=== PATIENT | female | born 1950 | race Caucasian/White ===

== ENCOUNTER 2021-05-06 10:06 | Emergency (ER) | payer OTHER, MEDICAID ==
[~2021-05-06] VITALS: Ht 160 cm; Wt 72.6 kg
[2021-05-06] MEDS ORDERED: DILTIAZEM ER180 M2 PO (10:11)
[2021-05-06] MEDS ORDERED: LISINOPRIL10 MG PO (10:12)
[2021-05-06] MEDS ORDERED: JANUMET 50-1,01 EACH PO (10:12)
[2021-05-06] MEDS ORDERED: PROTONIX40 M2 PO (10:12)
[2021-05-06 11:18] LABS: ABSOLUTE BASOPHILS 0.1 thou/uL (0.0-0.2); ABSOLUTE EOSINOPHILS 0.1 thou/uL (0.0-0.7); ABSOLUTE LYMPHOCYTES 1.8 thou/uL (0.8-5.3); ABSOLUTE MONOCYTES 0.5 thou/uL (0.0-1.2); ABSOLUTE NEUTROPHILS 8.3 thou/uL (1.6-8.1); BASOPHILS 0.8 %; EOSINOPHILS 0.9 %; HEMATOCRIT 31.7 % (37.0-47.0); HEMOGLOBIN 10.2 gm/dL (12.0-15.0); LYMPHOCYTES 16.8 %; MCH 23.4 pg (26.0-34.0); MCHC 32.2 g/dL (28.0-37.0); MCV 72.7 fL (80.0-100.0); MONOCYTES 4.6 %; MPV 7.5 fl. (7.2-11.1); NUCLEATED RBCS 0 /100WBC; PLATELET COUNT* 405 thou/uL (150-400); POLYS 76.9 %; RBC 4.36 mil/uL (4.20-5.00); RDW-CV 17.3 % (10.5-14.5); WBC 10.8 thou/uL (4.0-11.0)
[2021-05-06 11:30] LABS: CALCIUM 9.2 mg/dL (8.5-10.1); CREATININE 0.7 mg/dL (0.6-1.3); POTASSIUM 4.4 mmol/L (3.5-5.1)
[2021-05-06 11:36] LABS: ALBUMIN 4.2 g/dL (3.4-5.0); TOTAL BILIRUBIN 0.3 mg/dL (<0.1-1.0); TOTAL PROTEIN 8.2 g/dL (6.4-8.2)
[2021-05-06 11:38] LABS: URINE BILIRUBIN NEGATIVE (Negative); URINE BLOOD NEGATIVE (Negative); URINE CLARITY CLEAR; URINE COLOR YELLOW; URINE GLUCOSE-RANDOM NEGATIVE (Negative); URINE KETONES NEGATIVE (Negative); URINE LEUKOCYTES-REFLEX NEGATIVE (Negative); URINE NITRITE-REFLEX NEGATIVE (Negative); URINE PROTEIN NEGATIVE (Negative); URINE UROBILINOGEN 0.2 E.U./dl (0.2-1.0)
--- NOTE | 2021-05-06 12:29 | EKG ---
[place] [address] ELECTROCARDIOGRAM REPORT Name: GISELAFRANCISCO J Pedro Room: [facility]#: [id number] Admission: 05/06/21 Attend Phys: Discharge: Date of : 52 Date of Service: 05/06/21 1127 Report #: [id number] THIS REPORT FOR: //name// [facility] ED Test Date: 2021-05-06 Test Time: 11:27:26 Pat Name: FRANCISCO J HIGGINS Department: Room: Gender: Slip Laster: : 1950 Requested By: Minoo Albright Order Number: [id number] MD: Doc Sawant Measurements Intervals [place] Rate: 95 P: 84 [place]: 163 QRS: 6 QRSD: 91 T: 55 QT: 341 QTc: 429 Interpretive Statements Sinus rhythm Probable left atrial enlargement Anterior infarct, old Baseline wander in lead(s) I,III,aVL No previous ECG available for comparison Electronically Signed On 05-06-2021 12:28:48 [employer] by Doc Sawant [email or web address] <ELECTRONICALLY SIGNED> By: Doc Sawant MD, [facility] 05/06/21 1228 1127 1127 Doc Sawant MD, [facility] /EPI
[2021-05-06 12:45] VITALS: BP 181/89
[2021-05-06] MEDS ORDERED: ATIVAN1 M1 PO (13:05)
== END 2021-05-06 12:52 | disposition home or self-care (01) ==
LOC: M.ERS 10:06
PROVIDERS: Nurse Practitioner Family
DX: R19.7 Diarrhea, unspecified (principal); F41.9 Anxiety disorder, unspecified; I10 Essential (primary) hypertension; E11.9 Type 2 diabetes mellitus without complications; E66.9 Obesity, unspecified; Z68.28 Body mass index [BMI] 28.0-28.9, adult; Z79.899 Other long term (current) drug therapy